=== PATIENT | male | born 1945 | race Caucasian/White ===

== ENCOUNTER → 2021-11-07 | Outpatient (CLI) | payer MEDICARE, BC ==
[~2021-11-07] MED LIST: LEVO25TA55 PO; LISI1TAB37 PO
--- NOTE | 2021-11-07 16:41 | RAD ---
XR ABDOMEN 2V History: Pain. Constipation. Comparison: None. Technique: Upright and supine views of the abdomen and pelvis Findings: Bowel gas pattern: Nonobstructive bowel gas pattern. Moderate colonic stool burden. Free air: None. Abnormal calcifications: None. 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 Other: None. Impression: 1. Nonobstructive bowel gas pattern with mild colonic stool burden. Electronically signed by: Vincent Wagner MD (11/07/2021 4:39 PM) [id number]
== END ==
LOC: RAD 10:35
PROVIDERS: ATTEND Specialist
DX: K59.00 Constipation, unspecified (principal); M47.816 Spondylosis without myelopathy or radiculopathy, lumbar region
CPT/HCPCS: 74019